=== PATIENT | male | born 1940 | race Caucasian/White ===

== ENCOUNTER 2019-05-06 11:13 | Outpatient (CLI) | payer MEDICARE ==
[2019-05-06] MEDS ORDERED: DILT120C64 PO (18:04)
[2019-05-06] MEDS ORDERED: APIX5TAB PO (18:04)
== END 2019-05-06 23:59 | disposition home or self-care (01) ==
LOC: CFH 11:13
PROVIDERS: ATTEND Emergency Medicine
DX: R10.9 Unspecified abdominal pain (principal)
CPT/HCPCS: 76700

== ENCOUNTER 2019-05-06 16:11 | Inpatient (IN) | payer MEDICARE ==
[~2019-05-06] VITALS: Ht 177.8 cm; Wt 85.9 kg
[2019-05-06] MEDS ORDERED: SODIUM CHLORIDE FLUSH 10ML SYR IVF ONE (16:30)
--- NOTE | 2019-05-06 16:45 | NUR ---
abdominal pain radiates to back with nausea for 2 days.
[2019-05-06 16:52] LABS: BASOPHILS # (AUTO) 0.04 x10^3/uL (0-0.1); BASOPHILS % (AUTO) 0 % (0-1); EOSINOPHILS # (AUTO) 0.15 x10^3/uL (0-0.4); EOSINOPHILS % (AUTO) 1 % (1-7); LYMPHOCYTES # (AUTO) 1.75 x10^3/uL (1-3.4); LYMPHOCYTES % (AUTO) 16 % (22-44); MD NO; MEAN CORPUSCULAR HEMOGLOBIN 33.1 pg (27.5-34.5); MEAN CORPUSCULAR HGB CONC 33.7 g/dL (33.2-36.2); MEAN CORPUSCULAR VOLUME 98.1 fL (81-97); MEAN PLATELET VOLUME 9.7 fL (7.4-10.4); MONOCYTES # (AUTO) 1.22 x10^3/uL (0.2-0.8); MONOCYTES % (AUTO) 11 % (2-9); NEUTROPHILS # (AUTO) 7.99 x10^3/uL (1.8-6.8); NEUTROPHILS % (AUTO) 72 % (42-75); PLATELET COUNT 233 x10^3/uL (130-400); RED BLOOD COUNT 4.88 x10^6/uL (4.38-5.82); RED CELL DISTRIBUTION WIDTH 13.8 % (9.4-14.8)
[2019-05-06 16:57] LABS: MICROSCOPIC AUTO
[2019-05-06 16:58] LABS: CULTURE INDICATED? NO
[2019-05-06] MEDS ORDERED: ONDANSETRON 2MG/ML, 2ML IVPush ONE (17:00)
[2019-05-06] MEDS ORDERED: CEFOTETAN PMX 2GM/50ML 50 ML IV ONE (17:00)
[2019-05-06] MEDS ORDERED: morphine SULFATE 10 MG/ML, 1ML IVPush ONE (17:00)
[2019-05-06 17:01] LABS: ALBUMIN 3.5 g/dL (3.4-5.0); ANION GAP 6 mmol/L (5-15); CALCIUM 9.2 mg/dL (8.5-10.1); CHLORIDE 107 mmol/L (98-107)
[2019-05-06 17:04] LABS: ALANINE AMINOTRANSFERASE 124 U/L (12-78); ALKALINE PHOSPHATASE 118 U/L (45-117); BILIRUBIN,TOTAL 0.8 mg/dL (0.2-1.0); CREATININE 1.11 mg/dL (0.7-1.3); TOTAL PROTEIN 7.6 g/dL (6.4-8.2)
[2019-05-06 17:14] LABS: INTERNATIONAL NORMALIZED RATIO 1.06 (0.93-1.1); PROTHROMBIN TIME 11.1 Seconds (9.6-11.5)
[2019-05-06] MEDS ORDERED: MORPHINE SULFATE 4 MG/ML, 1ML ONE (17:46)
[2019-05-06] MEDS ORDERED: ONDANSETRON 2MG/ML, 2ML ONE (17:46)
[2019-05-06] MEDS ORDERED: APIX5TAB PO (18:04)
[2019-05-06] MEDS ORDERED: DILT120C64 PO (18:04)
--- NOTE | 2019-05-06 18:04 | NUR ---
medicated for pain and nausea. aware of intention to admit
--- NOTE | 2019-05-06 19:01 | NUR ---
REPORT RECIEVED FROM TIAGO CORDOVA
--- NOTE | 2019-05-06 19:22 | NUR ---
ATTEMPTED TO CALL REPORT. 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
[2019-05-06] MEDS ORDERED: morphine SULFATE 10 MG/ML, 1ML IVPush PRN (19:30)
[2019-05-06] MEDS ORDERED: hydrALAzine 20 MG/ML, 1ML IVPush PRN (19:30)
[2019-05-06] MEDS ORDERED: ONDANSETRON 2MG/ML, 2ML IVPush PRN (19:30)
[2019-05-06] MEDS ORDERED: LABETALOL 5MG/ML, 20ML IVPush PRN (19:30)
[2019-05-06] MEDS ORDERED: KETOROLAC 30 MG/1 ML IV PRN (19:30)
[2019-05-06] MEDS ORDERED: PROMETHAZINE 25 MG/ML, 1ML IM PRN (19:30)
[2019-05-06] MEDS ORDERED: DOCUSATE 100 MG CAPSULE PO PRN (19:30)
--- NOTE | 2019-05-06 19:31 | NUR ---
REPORT GIVEN TO TIAGO JOHNSON
[2019-05-06 20:04] LABS: FREE T4 (FREE THYROXINE) 1.19 ng/dL (0.76-1.46)
[2019-05-06] MEDS ORDERED: OMNIPAQUE 350 MG/ML, 100ML BOTTLE ONE (20:05)
[2019-05-06 20:11] LABS: HEMOGLOBIN A1C 5.5 % (4.2-6.3)
[2019-05-06] MEDS: SODIUM CHLORIDE 0.9% 1,000 ML IV SCH (20:33)
[2019-05-06] MEDS: METRONIDAZOLE PMX 500MG/100ML 100 ML IV SCH (21:54)
[2019-05-06 22:05] VITALS: BP 162/84
[2019-05-07 03:18] VITALS: BP 139/78
[2019-05-07] MEDS: SODIUM CHLORIDE 0.9% 1,000 ML IV SCH ×2 (05:07→21:29)
[2019-05-07] MEDS: METRONIDAZOLE PMX 500MG/100ML 100 ML IV SCH ×4 (05:07→21:41)
[2019-05-07 05:46] LABS: CHLORIDE 110 mmol/L (98-107)
[2019-05-07 05:53] LABS: ALANINE AMINOTRANSFERASE 87 U/L (12-78); ALBUMIN 2.9 g/dL (3.4-5.0); ALKALINE PHOSPHATASE 90 U/L (45-117); ANION GAP 6 mmol/L (5-15); BILIRUBIN,TOTAL 0.7 mg/dL (0.2-1.0); CALCIUM 8.4 mg/dL (8.5-10.1); CHOL/HDL RATIO 3.3; CHOLESTEROL, TOTAL 127 mg/dL (140-239); CREATININE 1.03 mg/dL (0.7-1.3); HDL CHOL % 30 % (26-37); HDL CHOLESTEROL (DIRECT) 38 mg/dL (40-60); LDL CHOLESTEROL,CALCULATED 74 mg/dL (54-169); LDL/HDL RATIO 1.9 (0.5-3.0); TOTAL PROTEIN 6.5 g/dL (6.4-8.2); TRIGLYCERIDES 77 mg/dL (50-200); VLDL CHOLESTEROL 15 mg/dL (0-25)
[2019-05-07 05:54] LABS: BASOPHILS # (AUTO) 0.02 x10^3/uL (0-0.1); BASOPHILS % (AUTO) 0 % (0-1); EOSINOPHILS # (AUTO) 0.11 x10^3/uL (0-0.4); EOSINOPHILS % (AUTO) 2 % (1-7); LYMPHOCYTES # (AUTO) 1.13 x10^3/uL (1-3.4); LYMPHOCYTES % (AUTO) 16 % (22-44); MD NO; MEAN CORPUSCULAR HGB CONC 33.7 g/dL (33.2-36.2); MEAN CORPUSCULAR VOLUME 97.8 fL (81-97); MEAN PLATELET VOLUME 9.6 fL (7.4-10.4); MONOCYTES # (AUTO) 0.81 x10^3/uL (0.2-0.8); MONOCYTES % (AUTO) 11 % (2-9); NEUTROPHILS # (AUTO) 5.02 x10^3/uL (1.8-6.8); NEUTROPHILS % (AUTO) 71 % (42-75); PLATELET COUNT 193 x10^3/uL (130-400); RED CELL DISTRIBUTION WIDTH 13.4 % (9.4-14.8)
[2019-05-07] MEDS: CEFOTETAN PMX 2GM/50ML 50 ML IV SCH ×2 (06:14→17:55)
[2019-05-07 06:56] VITALS: BP 138/81
[2019-05-07] MEDS ORDERED: POTASSIUM CHLORIDE 40 MEQ in SODIUM CHLORIDE 0.9% 500 ML IV ONE (09:00)
[2019-05-07] MEDS: DILTIAZEM 120 MG CAP.ER.24H PO SCH (10:14)
[2019-05-07 14:01] VITALS: BP 140/83
[2019-05-07] MEDS: ACETAMINOPHEN 325 MG TABLET PO PRN (14:23)
[2019-05-07 19:45] VITALS: BP 164/81
[2019-05-08 01:52] VITALS: BP 138/80
[2019-05-08] MEDS: CEFOTETAN PMX 2GM/50ML 50 ML IV SCH ×2 (05:27→18:28)
[2019-05-08] MEDS: METRONIDAZOLE PMX 500MG/100ML 100 ML IV SCH ×3 (06:17→22:18)
[2019-05-08 08:02] VITALS: BP 157/83
[2019-05-08] MEDS: DILTIAZEM 120 MG CAP.ER.24H PO SCH (11:21)
[2019-05-08 12:17] LABS: BASOPHILS # (AUTO) 0.02 x10^3/uL (0-0.1); BASOPHILS % (AUTO) 0 % (0-1); EOSINOPHILS % (AUTO) 2 % (1-7); LYMPHOCYTES # (AUTO) 0.98 x10^3/uL (1-3.4); LYMPHOCYTES % (AUTO) 14 % (22-44); MD NO; MEAN CORPUSCULAR HEMOGLOBIN 33.1 pg (27.5-34.5); MEAN CORPUSCULAR VOLUME 97.2 fL (81-97); MEAN PLATELET VOLUME 9.3 fL (7.4-10.4); MONOCYTES # (AUTO) 0.54 x10^3/uL (0.2-0.8); MONOCYTES % (AUTO) 8 % (2-9); NEUTROPHILS # (AUTO) 5.19 x10^3/uL (1.8-6.8); NEUTROPHILS % (AUTO) 76 % (42-75); PLATELET COUNT 239 x10^3/uL (130-400); RED BLOOD COUNT 4.55 x10^6/uL (4.38-5.82); RED CELL DISTRIBUTION WIDTH 12.8 % (9.4-14.8)
[2019-05-08 12:43] LABS: CHLORIDE 107 mmol/L (98-107)
[2019-05-08 12:48] LABS: ALANINE AMINOTRANSFERASE 65 U/L (12-78); ALBUMIN 3.1 g/dL (3.4-5.0); ALKALINE PHOSPHATASE 86 U/L (45-117); BILIRUBIN,TOTAL 1.5 mg/dL (0.2-1.0); CALCIUM 8.7 mg/dL (8.5-10.1); CREATININE 1.19 mg/dL (0.7-1.3); TOTAL PROTEIN 6.8 g/dL (6.4-8.2)
[2019-05-08 12:53] LABS: ANION GAP 9 mmol/L (5-15)
[2019-05-08 13:34] VITALS: BP 150/86
[2019-05-08] MEDS ORDERED: HEPARIN 5,000 UNITS/ML, 1ML IV ONE (15:00)
[2019-05-08] MEDS ORDERED: HEPARIN 5,000 UNITS/ML, 1ML IV PRN (15:00)
[2019-05-08] MEDS ORDERED: HEPARIN 25,000 UNITS/500ML PMX 500 ML IV PRN (15:00)
[2019-05-08 19:20] VITALS: BP 143/88
[2019-05-09 02:32] VITALS: BP 147/83
[2019-05-09] MEDS: CEFOTETAN PMX 2GM/50ML 50 ML IV SCH ×2 (05:51→19:50)
[2019-05-09] MEDS: METRONIDAZOLE PMX 500MG/100ML 100 ML IV SCH ×3 (06:31→22:25)
[2019-05-09 08:18] VITALS: BP 162/89
[2019-05-09] MEDS: DILTIAZEM 120 MG CAP.ER.24H PO SCH (08:57)
[2019-05-09] MEDS ORDERED: CEFOTETAN 2 GM ONE (11:10)
[2019-05-09] MEDS ORDERED: PROPOFOL 10 MG/ML, 20ML ONE (11:10)
[2019-05-09] MEDS ORDERED: ROCURONIUM 10MG/ML,5ML ONE (11:10)
[2019-05-09] MEDS ORDERED: hydrALAzine 20 MG/ML, 1ML ONE (11:10)
[2019-05-09] MEDS ORDERED: ONDANSETRON 2MG/ML, 2ML ONE (11:10)
[2019-05-09] MEDS ORDERED: SUGAMMADEX 200 MG/2 ML IVPush ONE (11:10)
[2019-05-09 14:02] VITALS: BP 156/90
[2019-05-09] MEDS ORDERED: BUPIVACAINE/PF 0.5% ONE ×2 (14:49→16:23)
[2019-05-09] MEDS ORDERED: MIDAZOLAM 1 MG/ML, 2ML ONE (16:13)
[2019-05-09] MEDS ORDERED: FENTANYL PF 250 MCG/5ML ONE (16:15)
[2019-05-09] MEDS ORDERED: BUPIVACAINE/PF-EPI 0.5% 1:200K ONE (16:21)
[2019-05-09] MEDS ORDERED: LABETALOL 5MG/ML, 20ML IV PRN (17:30)
[2019-05-09] MEDS ORDERED: ACETAMINOPHEN 325 MG TABLET PO PRN (17:30)
[2019-05-09] MEDS ORDERED: METOPROLOL 1 MG/ML, 5ML IV PRN (17:30)
[2019-05-09] MEDS ORDERED: MEPERIDINE/PF 25MG/0.5ML IVPush PRN (17:30)
[2019-05-09] MEDS ORDERED: hydrALAzine 20 MG/ML, 1ML IV PRN (17:30)
[2019-05-09] MEDS ORDERED: OXYcodone 5 MG/5 ML ORAL.SOL UDC PO PRN (17:30)
[2019-05-09] MEDS ORDERED: ONDANSETRON 2MG/ML, 2ML IV PRN (17:30)
[2019-05-09] MEDS ORDERED: HYDROmorphone 2 MG/ML, 1ML IVPush PRN (17:30)
[2019-05-09] MEDS ORDERED: OXYcodone 5 MG/5 ML ORAL.SOL UDC ONE (17:49)
[2019-05-09] MEDS ORDERED: ACETAMINOPHEN 650 MG/20.3 ML UDC ONE (17:49)
[2019-05-09] MEDS ORDERED: FENTANYL PF 100 MCG/2ML ONE (17:49)
[2019-05-09] MEDS: FENTANYL PF 100 MCG/2ML IV PRN ×4 (17:50→18:20)
[2019-05-09 19:15] VITALS: BP 125/76
[2019-05-09] MEDS: ONDANSETRON ODT 4 MG PO PRN (19:57)
[2019-05-09] MEDS: OXYcodone IR 5MG TABLET PO PRN (22:20)
[2019-05-10 01:14] VITALS: BP 114/63
[2019-05-10] MEDS: OXYcodone IR 5MG TABLET PO PRN (05:57)
[2019-05-10] MEDS: METRONIDAZOLE PMX 500MG/100ML 100 ML IV SCH ×3 (05:58→22:04)
[2019-05-10 06:06] LABS: BASOPHILS # (AUTO) 0.02 x10^3/uL (0-0.1); BASOPHILS % (AUTO) 0 % (0-1); EOSINOPHILS # (AUTO) 0.03 x10^3/uL (0-0.4); EOSINOPHILS % (AUTO) 0 % (1-7); LYMPHOCYTES # (AUTO) 0.89 x10^3/uL (1-3.4); LYMPHOCYTES % (AUTO) 9 % (22-44); MD NO; MEAN CORPUSCULAR HEMOGLOBIN 32.4 pg (27.5-34.5); MEAN CORPUSCULAR HGB CONC 33.5 g/dL (33.2-36.2); MEAN CORPUSCULAR VOLUME 96.7 fL (81-97); MEAN PLATELET VOLUME 8.6 fL (7.4-10.4); MONOCYTES # (AUTO) 1.12 x10^3/uL (0.2-0.8); MONOCYTES % (AUTO) 11 % (2-9); NEUTROPHILS # (AUTO) 8.33 x10^3/uL (1.8-6.8); NEUTROPHILS % (AUTO) 80 % (42-75); PLATELET COUNT 242 x10^3/uL (130-400); RED BLOOD COUNT 4.61 x10^6/uL (4.38-5.82); RED CELL DISTRIBUTION WIDTH 13.3 % (9.4-14.8)
[2019-05-10 06:17] LABS: ALANINE AMINOTRANSFERASE 72 U/L (12-78); ANION GAP 8 mmol/L (5-15); CALCIUM 8.6 mg/dL (8.5-10.1); CHLORIDE 107 mmol/L (98-107); CREATININE 1.36 mg/dL (0.7-1.3)
[2019-05-10 06:19] LABS: ALKALINE PHOSPHATASE 78 U/L (45-117); BILIRUBIN,TOTAL 0.3 mg/dL (0.2-1.0); TOTAL PROTEIN 6.8 g/dL (6.4-8.2)
[2019-05-10] MEDS: ONDANSETRON ODT 4 MG PO PRN (07:33)
[2019-05-10] MEDS: CEFOTETAN PMX 2GM/50ML 50 ML IV SCH ×2 (07:34→19:43)
[2019-05-10 07:49] VITALS: BP 145/84
[2019-05-10] MEDS: DILTIAZEM 120 MG CAP.ER.24H PO SCH (08:58)
[2019-05-10 14:30] VITALS: BP 112/65
[2019-05-10] MEDS ORDERED: BISACODYL 10 MG SUPP PR PRN (15:00)
[2019-05-10] MEDS: APIXABAN 5 MG TABLET PO SCH (16:24)
[2019-05-10 19:49] VITALS: BP 157/71
[2019-05-10] MEDS ORDERED: SENNA/DOCUSATE TABLET PO SCH (21:00)
[2019-05-11 01:59] VITALS: BP 134/88
[2019-05-11] MEDS: ACETAMINOPHEN 325 MG TABLET PO PRN (03:38)
[2019-05-11 05:46] LABS: CHLORIDE 107 mmol/L (98-107)
[2019-05-11] MEDS: METRONIDAZOLE PMX 500MG/100ML 100 ML IV SCH (05:54)
[2019-05-11 05:57] LABS: ALANINE AMINOTRANSFERASE 61 U/L (12-78); ALBUMIN 2.8 g/dL (3.4-5.0); ALKALINE PHOSPHATASE 70 U/L (45-117); ANION GAP 7 mmol/L (5-15); BILIRUBIN,TOTAL 0.4 mg/dL (0.2-1.0); CALCIUM 8.7 mg/dL (8.5-10.1); CREATININE 1.16 mg/dL (0.7-1.3); TOTAL PROTEIN 6.6 g/dL (6.4-8.2)
[2019-05-11 07:28] VITALS: BP 127/73
[2019-05-11] MEDS: APIXABAN 5 MG TABLET PO SCH ×2 (07:34→09:00)
[2019-05-11] MEDS: CEFOTETAN PMX 2GM/50ML 50 ML IV SCH (07:34)
[2019-05-11] MEDS ORDERED: DOCUSATE 100 MG CAPSULE PO SCH (09:00)
[2019-05-11] MEDS: DILTIAZEM 120 MG CAP.ER.24H PO SCH (09:39)
[2019-05-11] MEDS ORDERED: SENN-193 PO (11:20)
[2019-05-11] MEDS ORDERED: POTASSIUM CHLORIDE 20 MEQ TAB.ER.PRT PO ONE (11:30)
== END 2019-05-11 13:05 | disposition home or self-care (01) | DRG 418 ==
LOC: ED 18:27 → EDIP 19:09 → 3NE 20:00 → DCLOUNGE 05-11 11:20
PROVIDERS: ADMIT Internal Medicine; ATTEND Internal Medicine
PROC: 0FT44ZZ Resection of Gallbladder, Percutaneous Endoscopic Approach (ICD-10-PCS; principal; 2019-05-09 16:45)
DX: K80.12 Calculus of gallbladder with acute and chronic cholecystitis without obstruction (principal); D68.69 Other thrombophilia; E86.0 Dehydration; I10 Essential (primary) hypertension; I48.2 Chronic atrial fibrillation; K57.30 Diverticulosis of large intestine without perforation or abscess without bleeding; Z96.641 Presence of right artificial hip joint; R79.89 Other specified abnormal findings of blood chemistry; K82.8 Other specified diseases of gallbladder; R31.29 Other microscopic hematuria; Z79.01 Long term (current) use of anticoagulants; Z85.46 Personal history of malignant neoplasm of prostate; Z90.49 Acquired absence of other specified parts of digestive tract; Z90.79 Acquired absence of other genital organ(s)
CPT/HCPCS: 36415; 74177; 80053; 80061; 81001; 83036; 83690; 83735; 84439; 84443; 85025; 85520; 85610; 85730; 88304; 93005; 96374; G0378; J1644; J2250; J2405; J2704; J3010; J3480; Q0162; Q9967; J0360; J2270; J3490; J7030; J7040